=== PATIENT | female | born 1950 | race Caucasian/White ===

== ENCOUNTER 2023-11-29 06:37 | Day surgery (SDC) | payer OTHER ==
[2023-11-25 10:43] VITALS: BMI 22.4
[2023-11-29] MEDS ORDERED: TROPICAMIDE 1% OPHTH SOLN 15 ML BOTTLE ONE (06:52)
[2023-11-29] MEDS ORDERED: OFLOXACIN 0.3% OPHTHALMIC SOLUTION 5 ML BOTTLE ONE (06:52)
[2023-11-29] MEDS ORDERED: PHENYLEPHRINE 2.5% OPTHALMIC DROP 2ML BOTTLE ONE (06:52)
[2023-11-29] MEDS ORDERED: KETOROLAC TROMETHAMINE 0.5% EYE DROP 1 DROP DROPS ONE (06:52)
[2023-11-29] MEDS ORDERED: CYCLOPENTOLATE HCL 1% OPHTH SOLN 2 ML BOTTLE ONE (06:53)
[2023-11-29] MEDS: TROPICAMIDE 1% OPHTH SOLN 15 ML BOTTLE OD SCH (07:05)
[2023-11-29] MEDS: KETOROLAC TROMETHAMINE 0.5% EYE DROP 1 DROP DROPS OD SCH (07:05)
[2023-11-29] MEDS: CYCLOPENTOLATE HCL 1% OPHTH SOLN 2 ML BOTTLE OD SCH (07:05)
[2023-11-29] MEDS: OFLOXACIN 0.3% OPHTHALMIC SOLUTION 5 ML BOTTLE OD SCH (07:05)
[2023-11-29] MEDS: PHENYLEPHRINE 2.5% OPHTH SOLN 15 ML BOTTLE OD SCH (07:05)
[2023-11-29] MEDS ORDERED: EPINEPHrine/PF 1 MG/1 ML (1:1,000) AMPULE ONE (07:15)
[2023-11-29] MEDS ORDERED: POVIDONE-IODINE 5% OPHTHALMIC PREP 30 ML SOLUTION ONE (07:15)
[2023-11-29] MEDS ORDERED: TETRACAINE 0.5% OPHTH SOLN 2 ML BOTTLE ONE (07:15)
[2023-11-29] MEDS ORDERED: BSS (NA/CA/MG/K) BALANCED SALT SOLUTION OPHTH SOLN 15 ML BOTTLE ONE (07:15)
[2023-11-29] MEDS ORDERED: BETAXOLOL HCL 0.25% OPHTHALMIC 10 ML DROPSBTL ONE (07:15)
[2023-11-29] MEDS ORDERED: EPI-SHUGARCAINE (EPINEPHRINE 0.025% & LIDOCAINE-PF 0.75%) 4ML ONE (07:15)
[2023-11-29] MEDS ORDERED: BACITRACIN/POLYMYXIN OPH OINT 3.5 GM TUBE ONE (07:15)
[2023-11-29] MEDS ORDERED: ACETYLCHOLINE 1:100 INTRA-OCUL 20 MG/2 ML KIT ONE (07:16)
[2023-11-29] MEDS ORDERED: NEO/POLYMYX B SULF/DEXAMETH OPHTHALMIC 5ML BOTTLE ONE (07:16)
[2023-11-29] MEDS ORDERED: MIDAZOLAM HCL 2 MG/2 ML SINGLE DOSE VIAL ONE (07:31)
[2023-11-29] MEDS ORDERED: ONDANSETRON 4 MG/2 ML VIAL ONE (08:07)
[2023-11-29] MEDS ORDERED: DEXAMETHASONE SOD PHOSPHATE 4 MG/1 ML VIAL ONE (08:07)
[2023-11-29] MEDS ORDERED: ACETAMINOPHEN 325 MG TABLET (FP) PO PRN ×2 (08:14→11:19)
[2023-11-29 08:34] VITALS: RESP 18
[2023-11-29 08:47] VITALS: BP 125/65; PULSE 69; TEMP 97.9
[2023-11-29] MEDS ORDERED: ONDANSETRON 4 MG/2 ML VIAL IVPUSH PRN (11:19)
== END 2023-11-29 08:50 | disposition home or self-care (01) ==
LOC: FASU 06:37
PROVIDERS: ATTEND Ophthalmology
PROC: 08RJ3JZ Replacement of Right Lens with Synthetic Substitute, Percutaneous Approach (ICD-10-PCS; principal; 2023-11-29 08:00)
DX: H25.11 Age-related nuclear cataract, right eye (principal)
CPT/HCPCS: 66984; V2632

== ENCOUNTER 2023-12-13 06:38 | Day surgery (SDC) | payer OTHER ==
[2023-11-25 10:53] VITALS: BMI 22.4
[2023-12-13] MEDS ORDERED: OFLOXACIN 0.3% OPHTHALMIC SOLUTION 5 ML BOTTLE ONE (06:49)
[2023-12-13] MEDS ORDERED: PHENYLEPHRINE 2.5% OPTHALMIC DROP 2ML BOTTLE ONE (06:50)
[2023-12-13] MEDS ORDERED: CYCLOPENTOLATE HCL 1% OPHTH SOLN 2 ML BOTTLE ONE (06:50)
[2023-12-13] MEDS ORDERED: TROPICAMIDE 1% OPHTH SOLN 15 ML BOTTLE ONE (06:50)
[2023-12-13] MEDS ORDERED: KETOROLAC TROMETHAMINE 0.5% EYE DROP 1 DROP DROPS ONE (06:50)
[2023-12-13] MEDS: KETOROLAC TROMETHAMINE 0.5% EYE DROP 1 DROP DROPS OS SCH (07:00)
[2023-12-13] MEDS: PHENYLEPHRINE 2.5% OPHTH SOLN 15 ML BOTTLE OS SCH (07:00)
[2023-12-13] MEDS: CYCLOPENTOLATE HCL 1% OPHTH SOLN 2 ML BOTTLE OS SCH (07:00)
[2023-12-13] MEDS: OFLOXACIN 0.3% OPHTHALMIC SOLUTION 5 ML BOTTLE OS SCH (07:00)
[2023-12-13] MEDS: TROPICAMIDE 1% OPHTH SOLN 15 ML BOTTLE OS SCH (07:00)
[2023-12-13] MEDS ORDERED: BACITRACIN/POLYMYXIN OPH OINT 3.5 GM TUBE ONE (07:07)
[2023-12-13] MEDS ORDERED: POVIDONE-IODINE 5% OPHTHALMIC PREP 30 ML SOLUTION ONE (07:07)
[2023-12-13] MEDS ORDERED: EPI-SHUGARCAINE (EPINEPHRINE 0.025% & LIDOCAINE-PF 0.75%) 4ML ONE (07:07)
[2023-12-13] MEDS ORDERED: TETRACAINE 0.5% OPHTH SOLN 2 ML BOTTLE ONE (07:07)
[2023-12-13] MEDS ORDERED: BETAXOLOL HCL 0.25% OPHTHALMIC 10 ML DROPSBTL ONE (07:07)
[2023-12-13] MEDS ORDERED: EPINEPHrine/PF 1 MG/1 ML (1:1,000) AMPULE ONE (07:07)
[2023-12-13] MEDS ORDERED: BSS (NA/CA/MG/K) BALANCED SALT SOLUTION OPHTH SOLN 15 ML BOTTLE ONE (07:08)
[2023-12-13] MEDS ORDERED: ACETYLCHOLINE 1:100 INTRA-OCUL 20 MG/2 ML KIT ONE (07:08)
[2023-12-13] MEDS ORDERED: NEO/POLYMYX B SULF/DEXAMETH OPHTHALMIC 5ML BOTTLE ONE (07:08)
[2023-12-13 07:12] VITALS: RESP 16
[2023-12-13] MEDS ORDERED: MIDAZOLAM HCL 2 MG/2 ML SINGLE DOSE VIAL ONE (07:33)
[2023-12-13] MEDS ORDERED: ACETAMINOPHEN 325 MG TABLET (FP) PO PRN (08:19)
[2023-12-13 08:33] VITALS: TEMP 97.1
[2023-12-13 08:53] VITALS: BP 127/71; PULSE 64
== END 2023-12-13 09:05 | disposition home or self-care (01) ==
LOC: FASU 06:38
PROVIDERS: ATTEND Ophthalmology
PROC: 08RK3JZ Replacement of Left Lens with Synthetic Substitute, Percutaneous Approach (ICD-10-PCS; principal; 2023-12-13 08:00)
DX: H25.12 Age-related nuclear cataract, left eye (principal)
CPT/HCPCS: 66984; V2632